=== PATIENT | male | born 1970 | race Caucasian/White ===

== ENCOUNTER 2017-03-19 15:16 | Inpatient (IN) | payer OTHER ==
[2017-03-19 16:12] LABS: ABS Basophils 0.1 10^3/ul (0-0.2); ABS Eosinophils 0.1 10^3/ul (0-0.6); ABS Lymphocytes 2.3 10^3/ul (1.0-4.8); ABS Monocytes 0.6 10^3/ul (0-0.8); ABS Neutrophils 2.9 10^3/ul (1.5-7.7); ABS Nucleated RBC 0 10^3/ul; Eosinophil % 1.9 % (0-6); Hematocrit 47 % (42-52); Lymphocyte % 38.9 % (25-47); Mean Corpuscular HGB Conc 34 g/dl (31-36); Mean Corpuscular Hemoglobin 31 pg (27-31); Mean Corpuscular Volume 91 fL (80-94); Mean Platelet Volume 7 um3 (7.4-10.4); Nucleated Red Blood Cells % 0.1; Platelet Count 278 10^3/ul (150-450); Red Blood Count 5.14 10^6/ul (4.0-5.4); Red Cell Distribution Width 13 % (10.5-15)
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
[2017-03-19 16:35] LABS: EGFR Non-African American 89.7 (>60)
[2017-03-19] MEDS ORDERED: LORazepam TAB(*) 1 MG PO ONE (17:30)
[2017-03-19] MEDS ORDERED: LORazepam TAB(*) 1 MG ONE (17:33)
[2017-03-19] MEDS ORDERED: traZODone TAB* 50 MG TAB PO ONE (19:09)
[2017-03-19] MEDS ORDERED: chlorproMAZINE TAB* 50 MG PO ONE (19:10)
[2017-03-19] MEDS ORDERED: Al Hydrox/Mg Hydrox/Simet LIQ* 30 ML UDC PO PRN (22:20)
[2017-03-19] MEDS ORDERED: Nicotine GUM* 2 MG PO PRN (22:20)
[2017-03-19] MEDS ORDERED: Mouth Piece, Nicotine* 1 EACH CARTRIDGE INH SCH (22:20)
[2017-03-19] MEDS ORDERED: chlorproMAZINE TAB* 100 MG PO PRN (22:23)
[2017-03-19] MEDS ORDERED: traZODone TAB* 50 MG TAB PO SCH (22:30)
[2017-03-20] MEDS ORDERED: Mouth Piece, Nicotine* 1 EACH CARTRIDGE ONE (09:23)
[2017-03-20] MEDS: Nicotine Inhaler* 10 MG AMP INH PRN ×3 (09:23→19:55)
[2017-03-20] MEDS: Vitamin THERAPEUTIC TAB PO SCH (09:23)
[2017-03-20 09:54] LABS: Urine Appearance Clear; Urine Blood Negative (Negative); Urine Color Yellow; Urine Ketones Negative (Negative); Urine Protein Negative (Negative); Urine Specific Gravity 1.023 (1.010-1.030); Urine Urobilinogen Negative (Negative)
--- NOTE | 2017-03-20 13:34 | PN ---
MHU: Group Therapy Note - Service Type Service Type: 99053 Group Psychotherapy - Cognitive Behavioral Group Therapy ( CBT):Patient was attentive and participatory in CBT programming this morning, and remained in good behavioral control. Patient expressed positive insights regarding relevant treatment interventions and goals.
[2017-03-20] MEDS ORDERED: hydrOXYzine HCL TAB* 50 MG PO PRN (13:36)
[2017-03-20] MEDS ORDERED: Mirtazapine TAB* 15 MG PO PRN (13:37)
[2017-03-20] MEDS: Nicotine PATCH 14 MG/24 HR* PATCH TRANSDERM SCH (14:04)
[2017-03-20] MEDS: Acetaminophen TAB* 325 MG PO PRN ×2 (14:04→19:54)
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
[2017-03-20] MEDS: Nicotine Patch Removal NOTE FOLLOW UP SCH (20:24)
[2017-03-21] MEDS: Nicotine PATCH 14 MG/24 HR* PATCH TRANSDERM SCH (09:00)
[2017-03-21] MEDS: Vitamin THERAPEUTIC TAB PO SCH (09:01)
[2017-03-21] MEDS: Nicotine Inhaler* 10 MG AMP INH PRN ×3 (09:01→16:53)
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
[2017-03-21] MEDS: Nicotine Patch Removal NOTE FOLLOW UP SCH (20:38)
[2017-03-21] MEDS ORDERED: Mirtazapine TAB* 15 MG PO SCH (21:00)
[2017-03-22 08:02] VITALS: BP 95/74
[2017-03-22] MEDS: Nicotine PATCH 14 MG/24 HR* PATCH TRANSDERM SCH (08:15)
[2017-03-22] MEDS: Vitamin THERAPEUTIC TAB PO SCH (08:15)
[2017-03-22] MEDS: Nicotine Inhaler* 10 MG AMP INH PRN ×2 (08:16→12:26)
[2017-03-22] MEDS ORDERED: Influenza VAC *QUAD* 2017-18* 0.5 ML SYRINGE IM ONE (11:00)
[2017-03-22] MEDS: Nicotine Patch Removal NOTE FOLLOW UP SCH (12:26)
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
== END 2017-03-22 13:00 | disposition home or self-care (01) | DRG 776 ==
LOC: ED 15:16 → BSU 20:58
PROVIDERS: ADMIT Psychiatry & Neurology Psychiatry; ATTEND Psychiatry & Neurology Psychiatry
PROC: GZHZZZZ Group Psychotherapy (ICD-10-PCS; principal; 2017-03-20)
DX: F19.24 Other psychoactive substance dependence with psychoactive substance-induced mood disorder (principal); R45.851 Suicidal ideations; R45.850 Homicidal ideations; F79 Unspecified intellectual disabilities; F17.210 Nicotine dependence, cigarettes, uncomplicated; F15.90 Other stimulant use, unspecified, uncomplicated; F32.9 Major depressive disorder, single episode, unspecified; R40.2412 Glasgow coma scale score 13-15, at arrival to emergency department; F12.20 Cannabis dependence, uncomplicated; F43.10 Post-traumatic stress disorder, unspecified; Z56.0 Unemployment, unspecified; Z85.820 Personal history of malignant melanoma of skin; Z87.820 Personal history of traumatic brain injury; Z23 Encounter for immunization
CPT/HCPCS: 36415; 80053; 80307; 80320; 80329; 81003; 84443; 85025; 90686; 90853; 99222; 99233; 99238; 99284; 99406; A9270-GY; G0480